=== PATIENT | female | born 1980 | race Caucasian/White ===

== ENCOUNTER 2022-07-25 02:15 | Emergency (ER) | payer OTHER ==
[~2022-07-25] VITALS: Ht 167.6 cm; Wt 74.4 kg
--- NOTE | 2022-07-25 02:23 | NUR ---
[id number] FROM HOME C/O EPIGASTRIC PAIN, N/V X2 DAYS. ADMITS TO [facility]ING [facility] 2 DAYS AGO. PT AAOX4, PLACED COMFORTABLY IN BED, VITALS CHECKED.
--- NOTE | 2022-07-25 02:26 | NUR ---
DR. HERNANDEZ AT BEDSIDE
--- NOTE | 2022-07-25 02:45 | NUR ---
BLOOD WORK COLLECTED AND SENT TO LAB
[2022-07-25] MEDS ORDERED: HALOPERIDOL LACTATE INJ 5 MG/ML VIAL ONE (02:47)
[2022-07-25] MEDS ORDERED: diphenhydrAMINE HCL 50 MG/ML VIAL ONE (02:48)
[2022-07-25] MEDS ORDERED: IV NS 0.9% 1,000 ML IV ONE ×2 (03:00→06:00)
[2022-07-25] MEDS ORDERED: HALOPERIDOL LACTATE INJ 5 MG/ML VIAL IV ONE (03:00)
[2022-07-25] MEDS ORDERED: diphenhydrAMINE HCL 50 MG/ML VIAL IV ONE (03:00)
--- NOTE | 2022-07-25 03:00 | NUR ---
PATIENT PLACED ON MENTAL HEALTH NURSE PRACTITIONER, NSR WITH HR 80s.
[2022-07-25 03:26] LABS: BASOPHILS % (AUTO) 0.3 % (0.0-2.0); HEMATOCRIT 35 % (33-45); HEMOGLOBIN 11.6 g/dL (11.5-14.8); LYMPHOCYTES # (AUTO) 3.1 K/uL (0.8-4.8); LYMPHOCYTES % (AUTO) 24.7 % (20.0-44.0); MEAN CORPUSCULAR HGB CONC 33 g/dl (31.0-36.0); MEAN CORPUSCULAR VOLUME 79 fL (82-100); MONOCYTES # (AUTO) 0.4 K/uL (0.1-1.30); MONOCYTES % (AUTO) 2.9 % (2.0-12.0); NEUTROPHILS # (AUTO) 9.1 K/uL (1.8-8.9); NEUTROPHILS % (AUTO) 72.1 % (43.0-81.0); PLATELET COUNT (AUTO) 394 K/uL (150-450); RED BLOOD CELL COUNT(AUTO) 4.51 MIL/uL (4.0-5.2); WHITE BLOOD COUNT (AUTO) 12.6 K/uL (4.3-11.0)
--- NOTE | 2022-07-25 03:30 | NUR ---
URINE COLLECTED AND SENT TO LAB
[2022-07-25 03:57] LABS: ALBUMIN 4.2 g/dL (3.4-5.0); BILIRUBIN,DIRECT 0.1 mg/dL (0.0-0.2); BILIRUBIN,TOTAL 0.5 mg/dL (0.2-1.0); CALCIUM, SERUM 9.3 mg/dL (8.5-10.1); CREATININE 0.9 mg/dL (0.6-1.3); POTASSIUM 3.6 mmol/L (3.5-5.1)
[2022-07-25] MEDS ORDERED: LORAZEPAM INJ 2 MG/ML VIAL ONE (04:05)
--- NOTE | 2022-07-25 04:10 | NUR ---
PT STATES SHE'S STILL EXPERIENCING ANXIETY. NOTIFIED. ORDER FOR 2MG ATIVAN RECEIVED.
[2022-07-25] MEDS ORDERED: LORAZEPAM INJ 2 MG/ML VIAL IV ONE (04:30)
[2022-07-25] MEDS ORDERED: ONDA4TAB5 PO ×2 (05:32→06:00)
--- NOTE | 2022-07-25 05:39 | NUR ---
PT LAYING ON GURNEY COMFORTABLY, EYES CLOSED. BP IMPROVED TO 166/95.
[2022-07-25 05:45] LABS: BILIRUBIN,URINE NEGATIVE (NEGATIVE); COLOR,URINE YELLOW (YELLOW); LEUKOCYTE ESTERASE ,URINE NEGATIVE (NEGATIVE); NITRITE, URINE NEGATIVE (NEGATIVE); PROTEIN,URINE 2+ mg/dl (NEGATIVE); UGLUCOSE NEGATIVE (NEGATIVE); UROBILINOGEN,URINE 0.2 EU/dL (0.2)
[2022-07-25 05:46] LABS: BACTERIA,URINE Rare /HPF (None Seen); RBC,URINE 0-2 /HPF (0-2); SQUAMOUS EPITHELIAL CELL,UR Few /HPF (None Seen); WBC,URINE 0-2 /HPF (0-3)
[2022-07-25] MEDS ORDERED: LORA-259 PO ×2 (05:58→06:00)
[2022-07-25] MEDS ORDERED: LORAZEPAM 1 MG TABLET PO ONE (06:00)
[2022-07-25] MEDS ORDERED: LORAZEPAM 1 MG TABLET ONE (06:05)
--- NOTE | 2022-07-25 07:00 | NUR ---
Note waylonone in EDM - 07/25/22 at [address]05 [address] Patient discharged to home in stable condition. Written and verbal after care instructions given. Patient verbalizes understanding of instruction. IV removed. Catheter intact and site benign. Pressure and 4x4 applied to site. No bleeding noted.
--- NOTE | 2022-07-25 07:07 | NUR ---
Written and verbal after care instructions given. Patient verbalizes understanding of instruction. IV removed. Catheter intact and site benign. Pressure and 4x4 applied to site. No bleeding noted. Patient awaiting for ride to go home.
--- NOTE | 2022-07-25 08:19 | NUR ---
Pt AAOx4, Pt respirations are equal and unlabored, Pt ambulated out of the ER with a steady gait. Pt with discharge instructions in hand. All questions answered at this time
[2022-07-25 08:21] VITALS: BP 161/98
== END 2022-07-25 08:22 | disposition home or self-care (01) ==
LOC: ER 02:17
DX: K29.70 Gastritis, unspecified, without bleeding (principal); F43.0 Acute stress reaction; E86.0 Dehydration; Z60.2 Problems related to living alone; Z79.899 Other long term (current) drug therapy
CPT/HCPCS: 99284; 96374; 96361; 96375; 85025; 80048; 83690; 80076; 83735; 84703; 81001; 36415; J2060; J1200; J1630; J7030 ×2